=== PATIENT | female | born 1995 | race Hispanic/Latino ===

== ENCOUNTER 2020-04-13 01:23 | Emergency (ER) | payer MEDICAID, OTHER ==
[2020-04-13] MEDS ORDERED: LIDOCAINE HCL 2% VISCOUS 15 ML UDCUP ONE (01:42)
[2020-04-13] MEDS ORDERED: PANTOPRAZOLE SODIUM 40 MG TABLET.DR ONE (01:43)
[2020-04-13] MEDS ORDERED: MAG HYDROX/AL HYDROX/SIMETH ES 30 ML SUSP UDCUP ONE (01:43)
[2020-04-13] MEDS ORDERED: FAMOTIDINE 20MG TAB 20 MG TAB ONE (01:43)
== END 2020-04-13 02:25 | disposition home or self-care (01) ==
LOC: EDH 01:23
DX: K29.00 Acute gastritis without bleeding (principal); Z72.0 Tobacco use